=== PATIENT | male | born 1970 | race American Indian/Alaskan Native ===

== ENCOUNTER 2018-05-31 21:01 | Emergency (ER) | payer OTHER ==
[2018-05-31 21:10] VITALS: BP 194/93
[2018-05-31] MEDS ORDERED: IBUPROFEN PO ONE (22:30)
--- NOTE | 2018-05-31 22:49 | Emergency Department Report ---
ED ENT HPI - General Chief complaint: Earache Stated complaint: FB LF EAR Time Seen by Provider: 05/31/18 22:29 Source: patient Mode of arrival: Ambulatory Limitations: No Limitations - History of Present Illness Initial comments: left ear pain x 3 days no fever no chills no throat pain no n/v no headache no dizziness no lightheadedness, symptoms exacerbated by nothing symptoms relieved by nothing tried there is no tinnitis no loss of hearing MD complaint: ear pain Onset/Timin -: days(s) Location: L ear Severity: moderate Severity scale (0 -10): 5 Quality: aching Consistency: constant Improves with: none Worsens with: none Associated Symptoms: denies: fever, cough, gum swelling, toothache, pain with swallowing, sore throat, tinnitus, hearing loss, discharge from ear, rhinorrhea - Related Data Previous Rx's Medication Instructions Recorded Last Taken Type Cipro/Dexameth 0.3/0.1% [Ciprodex 4 drops OT BID 10 Days #1 bottle 05/31/18 Unknown Rx OTIC] Ibuprofen 800 mg PO TID PRN #30 tablet 05/31/18 Unknown Rx Allergies Allergy/AdvReac Type Severity Reaction Status Date / Time No Known Allergies Allergy Unverified 05/31/18 21:09 ED Dental HPI - General Chief complaint: Earache Stated complaint: FB LF EAR Time Seen by Provider: 05/31/18 22:29 Source: patient Mode of arrival: Ambulatory Limitations: No Limitations - Related Data Previous Rx's Medication Instructions Recorded Last Taken Type Cipro/Dexameth 0.3/0.1% [Ciprodex 4 drops OT BID 10 Days #1 bottle 05/31/18 Unknown Rx OTIC] Ibuprofen 800 mg PO TID PRN #30 tablet 05/31/18 Unknown Rx Allergies Allergy/AdvReac Type Severity Reaction Status Date / Time No Known Allergies Allergy Unverified 05/31/18 21:09 ED Review of Systems ROS: Stated complaint: FB LF EAR Other details as noted in HPI Constitutional: denies: chills, fever Eyes: denies: eye pain, eye discharge, vision change ENT: ear pain Respiratory: denies: cough, shortness of breath, wheezing Cardiovascular: denies: chest pain, palpitations Endocrine: no symptoms reported Gastrointestinal: denies: abdominal pain, nausea, diarrhea Genitourinary: denies: urgency, dysuria Musculoskeletal: denies: back pain, joint swelling, arthralgia Skin: denies: rash, lesions Neurological: denies: headache, weakness, numbness, paresthesias, confusion, vertigo Psychiatric: denies: anxiety, depression Hematological/Lymphatic: denies: easy bleeding, easy bruising ED Past Medical Hx - Past Medical History Previous Medical History?: No - Surgical History Past Surgical History?: No - Social History Smoking Status: Never Smoker Substance Use Type: None - Medications Home Medications: Home Medications Medication Instructions Recorded Confirmed Last Taken Type Cipro/Dexameth 0.3/0.1% [Ciprodex 4 drops OT BID 10 Days #1 bottle 05/31/18 Unknown Rx OTIC] Ibuprofen 800 mg PO TID PRN #30 tablet 05/31/18 Unknown Rx ED Physical Exam - General Limitations: No Limitations General appearance: alert, in no apparent distress - Head Head exam: Present: atraumatic, normocephalic - Eye Eye exam: Present: normal appearance - ENT ENT exam: Present: normal orophraynx, mucous membranes moist - Expanded ENT Exam Expanded Ear exam: Present: normal external inspection TM/Canal exam: Erythema: Left TM, Loss of Landmarks: Left TM, Canal Discharge: Left TM, Canal Tenderness: Left TM Mouth exam: Absent: trismus Teeth exam: Present: normal inspection Throat exam: Positive: normal inspection. Negative: tonsillar erythema, tonsillomegaly, tonsillar exudate, R peritonsillar mass, L peritonsillar mass - Neck Neck exam: Present: normal inspection, full ROM. Absent: tenderness, meningismus, lymphadenopathy, thyromegaly - Respiratory Respiratory exam: Present: normal lung sounds bilaterally. Absent: respiratory distress - Cardiovascular Cardiovascular Exam: Present: regular rate, normal rhythm. Absent: systolic murmur, diastolic murmur, rubs, gallop - GI/Abdominal GI/Abdominal exam: Present: soft, normal bowel sounds - Rectal Rectal exam: Present: deferred - Extremities Exam Extremities exam: Present: normal inspection - Back Exam Back exam: Present: normal inspection, full ROM - Neurological Exam Neurological exam: Present: alert, oriented X3 - Psychiatric Psychiatric exam: Present: normal affect, normal mood - Skin Skin exam: Present: warm, dry, intact, normal color. Absent: rash ED Course Vital Signs 05/31/18 05/31/1819 21:08 21:09 22:36 Temperature 99.4 F 99.4 F Pulse Rate 78 78 Respiratory 18 20 18 Rate Blood Pressure 194/93 194/93 O2 Sat by Pulse 98 98 Oximetry ED Medical Decision Making - Medical Decision Making this is otitis externa there is moderate canal swelling loss of land jimenez no fever no drainage no tinitis will follow up pcp in 2-3 days return to ed if symptoms worsen. pt verbalized agreement and understanding of discharge plan. Critical care attestation.: If time is entered above; I have spent that time in minutes in the direct care of this critically ill patient, excluding procedure time. ED Disposition Clinical Impression: Otitis externa Qualifiers: Otitis externa type: unspecified type Chronicity: acute Laterality: left Qualified Code(s): H60.502 - Unspecified acute noninfective otitis externa, left ear Disposition: - TO HOME OR SELFCARE Is pt being admited?: No Does the pt Need Aspirin: No Condition: Stable Instructions: Otitis Externa (ED) Prescriptions: Cipro/Dexameth 0.3/0.1% [Ciprodex OTIC] 4 drops OT BID 10 Days #1 bottle Ibuprofen 800 mg PO TID PRN #30 tablet PRN Reason: pain Referrals: [facility] [Outside] - 3-5 Days Forms: Work/School Release Form(ED) Time of Disposition: 22:47
== END 2018-05-31 22:55 | disposition home or self-care (01) ==
LOC: ED 21:01
DX: H60.502 Unspecified acute noninfective otitis externa, left ear (principal)
CPT/HCPCS: 99282